=== PATIENT | female | born 1995 | race Caucasian/White ===

== ENCOUNTER → 2016-09-30 | Outpatient (CLI) | payer BC, OTHER ==
[~2016-09-30] MED LIST: ALBUTEROL0.09 MG/A2 INH; AMOXIL500 MG PO; ANAPROX DS550 MG PO; BACTRIM DS 8001 TA1 PO; FLOVENT0.22 MG/AC INH; Flovent 220 M220 MCG INH; IBU-8800 MG PO; LATU20TA PO; LOPRESSOR25 MG PO; MIRTAZAPINE15 M1 PO; NKHM; PREDNISONE20 M1 PO; PREDNISONE20 MG PO; PRILOSEC20 M1 PO; PYRIDIUM200 MG PO; SERTRALINE HYDR50 MG PO; TESSALON PERLE100 M1 PO; TOPROL XL25 MG PO; TRAZODONE50 MG PO; VIBRAMYCIN100 MG PO; VISTARIL25 MG PO; VRAYLAR1.5 MG PO; VRAYLAR6 MG PO; ZOFRAN ODT4 MG SL; ZOFRAN4 MG PO; ZOFRAN8 MG PO
[2016-09-30 12:42] LABS: ALBUMIN 3.8 gm/dl (3.1-4.5); ALKALINE PHOSPHATASE 115 U/L (45-117); BILIRUBIN, TOTAL 0.3 mg/dl (0.2-1.0); BUN 7 mg/dl (7-24); CARBON DIOXIDE 28 mmol/L (21-32); CHLORIDE 105 mmol/L (98-107); EST GLOM FILT AFRICAN AMERICAN > 60 ml/min; GLUCOSE 84 mg/dL (65-99); POTASSIUM 4.2 mmol/L (3.5-5.1); SGOT/AST 29 IU/L (3-35); SGPT/ALT 43 U/L (12-78); SODIUM 139 mmol/L (136-145); TOTAL PROTEIN 7.3 gm/dL (6.4-8.2)
== END | disposition home or self-care (01) ==
LOC: LAB 10:46 → US 11:00
PROVIDERS: Nurse Practitioner
DX: K76.0 Fatty (change of) liver, not elsewhere classified (principal); R10.11 Right upper quadrant pain

== ENCOUNTER 2016-11-06 10:21 | Emergency (ER) | payer BC, OTHER ==
[~2016-11-06] VITALS: Ht 157.4 cm; Wt 76.2 kg
--- NOTE | ~2016-11-06 | EKG ---
[place], [place] ELECTROCARDIOGRAM REPORT NAME: MARTHA BAY UNIT #: [id number] ROOM: DOCTOR: SHANDRA GALLAGHER MD BIRTHDATE: [birth year] DOS: 11/06/2016 TIME: 1124 hours. FINDINGS: 1. Normal sinus rhythm at 66 beats per minute ____ sinus arrhythmia is present. 2. The tracing is normal. 3. No previous tracing is available for comparison. SHANDRA GALLAGHER MD CM:EKGRPT:ELECTROCARDIOGRAM REPORT [id number] SHANDRA GALLAGHER MD
[2016-11-06 10:51] VITALS: BP 132/80
[2016-11-06] MEDS ORDERED: ZOLPIDEM TART10 MG PO (10:54)
[2016-11-06] MEDS ORDERED: DESOGESTREL-ETH1 TAB PO (10:54)
[2016-11-06 11:25] LABS: BASO % 0.2 % (0.0-1.0); EOS # 0.1 10*3/uL (0.0-0.4); EOS % 0.4 % (1.0-4.0); HEMOGLOBIN 14.6 g/dl (12.0-16.0); IG # 0.1 10*3/uL (0.0-0.1); LYMPH # 4.7 10*3/uL (1.3-4.4); LYMPH % 32.3 % (27.0-41.0); MEAN CELL VOLUME 88.7 fl (81.0-99.0); MEAN CORPUSCULAR HGB 30.1 pg (27.0-31.0); MEAN PLATELET VOLUME 10.2 fl (9.6-12.3); MONO # 1.1 10*3/uL (0.1-1.0); MONO % 7.7 % (3.0-9.0); NEUT # 8.7 10*3/uL (2.3-7.9); NEUT % 59.1 % (47.0-73.0); PLATELET COUNT AUTOMATED 305 10*3/uL (130-400); RED BLOOD COUNT 4.85 10*6/uL (4.10-5.10); RED CELL DISTRI WIDTH 12.6 % (0-14.5); WHITE BLOOD COUNT 14.7 10*3/uL (4.8-10.8)
[2016-11-06 11:44] LABS: ALBUMIN 3.5 gm/dl (3.1-4.5); ALKALINE PHOSPHATASE 117 U/L (45-117); BILIRUBIN, TOTAL 0.1 mg/dl (0.2-1.0); BUN 9 mg/dl (7-24); CARBON DIOXIDE 24 mmol/L (21-32); CHLORIDE 109 mmol/L (98-107); EST GLOM FILT AFRICAN AMERICAN > 60 ml/min; GLUCOSE 94 mg/dL (65-99); SGOT/AST 16 IU/L (3-35); SGPT/ALT 22 U/L (12-78); SODIUM 143 mmol/L (136-145)
[2016-11-06 11:45] LABS: BILIRUBIN NEGATIVE (NEGATIVE); BLOOD 3+ (NEGATIVE); CLARITY SL CLOUDY (CLEAR); COLOR YELLOW (YELLOW); GLUCOSE NEGATIVE (NEGATIVE); KETONE NEGATIVE (NEGATIVE); LEUKO ESTERASE TRACE (NEGATIVE); NITRITE NEGATIVE (NEGATIVE); PH 6.5 (5.0-9.0); PROTEIN TRACE (NEGATIVE); UROBILINOGEN 0.2 E.U./dl (0.2-1.0)
[2016-11-06 11:49] LABS: TROPONIN I < 0.015 ng/ml (<0.045)
[2016-11-06 11:58] LABS: BACTERIA 1+; EPITHELIAL CELLS 16-20; RBC 51-100 rbc/hpf (0-2)
[2016-11-06 12:01] LABS: CALCIUM OXALATE CRYSTALS 1+; URINE REFLEX COMMENT YES (NO)
== END 2016-11-06 15:05 | disposition home or self-care (01) ==
LOC: ED 10:21
PROVIDERS: Nurse Practitioner Family
DX: R20.9 Unspecified disturbances of skin sensation (principal); R03.0 Elevated blood-pressure reading, without diagnosis of hypertension; F17.200 Nicotine dependence, unspecified, uncomplicated; F41.9 Anxiety disorder, unspecified; F32.9 Major depressive disorder, single episode, unspecified; E78.5 Hyperlipidemia, unspecified; J44.9 Chronic obstructive pulmonary disease, unspecified; E66.01 Morbid (severe) obesity due to excess calories; Z68.42 Body mass index [BMI] 45.0-49.9, adult; Z88.0 Allergy status to penicillin; Z88.1 Allergy status to other antibiotic agents; Z88.8 Allergy status to other drugs, medicaments and biological substances; Z79.899 Other long term (current) drug therapy

== ENCOUNTER → 2016-11-25 | Outpatient (CLI) | payer BC, OTHER ==
[~2016-11-25] MED LIST changes: +DESOGESTREL-ETH1 TAB PO; +ZOLPIDEM TART10 MG PO
== END | disposition home or self-care (01) ==
LOC: MRI 14:09
DX: G43.009 Migraine without aura, not intractable, without status migrainosus (principal); E34.8 Other specified endocrine disorders

== ENCOUNTER 2017-04-23 20:18 | Emergency (ER) | payer BC, OTHER ==
[~2017-04-23] VITALS: Ht 157.4 cm; Wt 120.2 kg
[2017-04-23 20:27] VITALS: BP 127/82
[2017-04-23] MEDS ORDERED: CYCLOBENZAPRINE10 MG PO (20:37)
[2017-04-23] MEDS ORDERED: NAPROSYN500 MG PO (20:37)
== END 2017-04-23 20:41 | disposition home or self-care (01) ==
LOC: ED 20:18
DX: M54.30 Sciatica, unspecified side (principal); J45.909 Unspecified asthma, uncomplicated; E78.5 Hyperlipidemia, unspecified; Z88.0 Allergy status to penicillin; Z88.2 Allergy status to sulfonamides; F17.200 Nicotine dependence, unspecified, uncomplicated

== ENCOUNTER 2017-05-27 20:03 | Emergency (ER) | payer BC, OTHER ==
[~2017-05-27] VITALS: Ht 154.9 cm; Wt 117.9 kg
[~2017-05-27 20:03] MED LIST changes: +CYCLOBENZAPRINE10 MG PO; +NAPROSYN500 MG PO
[2017-05-27 21:11] LABS: BILIRUBIN NEGATIVE (NEGATIVE); BLOOD NEGATIVE (NEGATIVE); CLARITY CLEAR (CLEAR); COLOR YELLOW (YELLOW); GLUCOSE NEGATIVE (NEGATIVE); KETONE NEGATIVE (NEGATIVE); LEUKO ESTERASE NEGATIVE (NEGATIVE); NITRITE NEGATIVE (NEGATIVE); UROBILINOGEN 0.2 E.U./dl (0.2-1.0)
[2017-05-27 21:20] LABS: BACTERIA 3+; RBC 0-2 rbc/hpf (0-2)
[2017-05-27] MEDS ORDERED: Zofran4 MG SL (21:57)
[2017-05-27 22:03] VITALS: BP 115/83
== END 2017-05-27 22:09 | disposition home or self-care (01) ==
LOC: ED 20:03
PROVIDERS: Student in an Organized Health Care Education/Training Program
DX: R11.2 Nausea with vomiting, unspecified (principal); J45.909 Unspecified asthma, uncomplicated; F41.9 Anxiety disorder, unspecified; F32.9 Major depressive disorder, single episode, unspecified; E78.5 Hyperlipidemia, unspecified; Z68.42 Body mass index [BMI] 45.0-49.9, adult; F17.200 Nicotine dependence, unspecified, uncomplicated; F10.10 Alcohol abuse, uncomplicated; Z88.8 Allergy status to other drugs, medicaments and biological substances; Z88.0 Allergy status to penicillin; Z88.2 Allergy status to sulfonamides; Z79.899 Other long term (current) drug therapy

== ENCOUNTER → 2017-07-29 | Outpatient (CLI) | payer BC, OTHER ==
[~2017-07-29] MED LIST changes: +Zofran4 MG SL
== END | disposition home or self-care (01) ==
LOC: RAD 15:47
DX: J45.21 Mild intermittent asthma with (acute) exacerbation (principal)

== ENCOUNTER → 2018-03-31 | Outpatient (CLI) | payer BC, OTHER | END | disposition home or self-care (01) | LOC: RAD 13:17 | DX: M25.462 Effusion, left knee (principal) ==

== ENCOUNTER → 2018-05-12 | Outpatient (CLI) | payer BC, OTHER | END | disposition home or self-care (01) | LOC: RAD 13:06 | DX: R05 Cough (principal); R06.02 Shortness of breath; J45.909 Unspecified asthma, uncomplicated ==

== ENCOUNTER → 2018-11-25 | Outpatient (CLI) | payer BC, OTHER ==
[~2018-11-25] MED LIST changes: +ERYTHROMYCIN500 M1 PO; +ZITHROMAX250 MG PO
== END | disposition home or self-care (01) ==
LOC: US 15:58
DX: Z34.82 Encounter for supervision of other normal pregnancy, second trimester (principal); Z3A.20 20 weeks gestation of pregnancy

== ENCOUNTER → 2018-12-15 | Outpatient (CLI) | payer OTHER | END | disposition home or self-care (01) | LOC: US 16:48 | DX: Z34.82 Encounter for supervision of other normal pregnancy, second trimester (principal); Z3A.22 22 weeks gestation of pregnancy ==

== ENCOUNTER → 2019-01-30 | Outpatient (CLI) | payer OTHER | END | disposition home or self-care (01) | LOC: LAB 10:02 | DX: R73.09 Other abnormal glucose (principal) ==

== ENCOUNTER → 2019-02-14 | Outpatient (CLI) | payer OTHER | END | disposition home or self-care (01) | LOC: US 10:57 | DX: Z34.93 Encounter for supervision of normal pregnancy, unspecified, third trimester (principal); Z3A.31 31 weeks gestation of pregnancy ==

== ENCOUNTER → 2019-03-21 | Outpatient (CLI) | payer OTHER | END | disposition home or self-care (01) | LOC: US 11:22 | DX: Z34.03 Encounter for supervision of normal first pregnancy, third trimester (principal); Z3A.36 36 weeks gestation of pregnancy ==

== ENCOUNTER 2020-12-03 19:00 | Emergency (ER) | payer OTHER ==
[~2020-12-03] VITALS: Ht 154.9 cm; Wt 97.1 kg
== END 2020-12-03 20:35 | disposition home or self-care (01) ==
LOC: ED 19:00
DX: S50.01XA Contusion of right elbow, initial encounter (principal); Z79.899 Other long term (current) drug therapy; Z88.1 Allergy status to other antibiotic agents; Z88.0 Allergy status to penicillin; Z88.8 Allergy status to other drugs, medicaments and biological substances; W22.03XA Walked into furniture, initial encounter; Y93.89 Activity, other specified; Y92.89 Other specified places as the place of occurrence of the external cause; Y99.9 Unspecified external cause status

== ENCOUNTER → 2020-12-20 | Outpatient (CLI) | payer OTHER | END | disposition home or self-care (01) | LOC: US 10:00 | PROVIDERS: ATTEND Nurse Practitioner Women's Health | DX: T83.32XA Displacement of intrauterine contraceptive device, initial encounter (principal) ==

== ENCOUNTER 2021-02-28 07:05 | Emergency (ER) | payer OTHER ==
[2021-02-28 07:22] VITALS: BP 108/74
[2021-02-28 08:02] LABS: BASO # 0.1 10*3/uL (0.0-0.1); BASO % 0.7 % (0.0-1.0); EOS # 0.3 10*3/uL (0.0-0.4); EOS % 4.2 % (1.0-4.0); HEMATOCRIT 42.9 % (37.0-47.0); LYMPH # 2.9 10*3/uL (1.3-4.4); LYMPH % 41.9 % (27.0-41.0); MEAN CELL VOLUME 88.8 fl (81.0-99.0); MEAN CORPUSCULAR HGB 30.4 pg (27.0-31.0); MEAN CORPUSCULAR HGB CONC 34.3 g/dl (33.0-37.0); MONO # 0.6 10*3/uL (0.1-1.0); MONO % 8.9 % (3.0-9.0); NEUT # 3.1 10*3/uL (2.3-7.9); PLATELET COUNT AUTOMATED 233 10*3/uL (130-400); RED BLOOD COUNT 4.83 10*6/uL (4.10-5.10); RED CELL DISTRI WIDTH 12.1 % (0-14.5)
[2021-02-28 08:16] LABS: ALBUMIN 3.6 gm/dl (3.1-4.5); ALKALINE PHOSPHATASE 78 U/L (45-117); BUN 7 mg/dl (7-24); CHLORIDE 109 mmol/L (98-107); CREATININE 0.69 mg/dL (0.55-1.02); SGOT/AST 13 IU/L (3-35); SGPT/ALT 26 U/L (12-78); SODIUM 139 mmol/L (136-145)
[2021-02-28 08:19] LABS: B-hCG (QUALITATIVE) NEGATIVE (NEGATIVE)
[2021-02-28] MEDS ORDERED: ZOFRAN4 MG PO (08:31)
== END 2021-02-28 07:48 | disposition home or self-care (01) ==
LOC: ED 07:05
PROVIDERS: Emergency Medicine
DX: R05 Cough (principal); Z20.822 Contact with and (suspected) exposure to COVID-19; R11.10 Vomiting, unspecified; R06.02 Shortness of breath; E78.5 Hyperlipidemia, unspecified; Z88.1 Allergy status to other antibiotic agents; Z88.0 Allergy status to penicillin; Z88.8 Allergy status to other drugs, medicaments and biological substances; Z79.899 Other long term (current) drug therapy

== ENCOUNTER 2021-04-16 07:38 | Emergency (ER) | payer OTHER ==
[~2021-04-16] VITALS: Ht 154.9 cm; Wt 110.2 kg
[2021-04-16 07:44] VITALS: BP 141/86
[2021-04-16] MEDS ORDERED: SPIRIVA RESPIMAT4 G1 INH (07:46)
[2021-04-16] MEDS ORDERED: Motrin,Rufen800 MG PO (10:52)
== END 2021-04-16 10:58 | disposition home or self-care (01) ==
LOC: ED 07:38
DX: S16.1XXA Strain of muscle, fascia and tendon at neck level, initial encounter (principal); Z88.0 Allergy status to penicillin; Z88.2 Allergy status to sulfonamides; Z88.8 Allergy status to other drugs, medicaments and biological substances; Z79.899 Other long term (current) drug therapy; V89.2XXA Person injured in unspecified motor-vehicle accident, traffic, initial encounter; Y93.89 Activity, other specified; Y92.89 Other specified places as the place of occurrence of the external cause; Y99.8 Other external cause status

== ENCOUNTER 2021-05-27 11:29 | Emergency (ER) | payer OTHER ==
[~2021-05-27] VITALS: Wt 103.0 kg
[~2021-05-27 11:29] MED LIST changes: +Motrin,Rufen800 MG PO; +SPIRIVA RESPIMAT4 G1 INH
[2021-05-27 11:39] VITALS: BP 117/74
[2021-05-27] MEDS ORDERED: FLONASE ALLERG9.9 ML NAS (13:55)
[2021-05-27] MEDS ORDERED: VIBRAMYCIN100 MG PO (13:55)
== END 2021-05-27 14:08 | disposition home or self-care (01) ==
LOC: ED 11:29
DX: J32.9 Chronic sinusitis, unspecified (principal); Z20.822 Contact with and (suspected) exposure to COVID-19; F17.200 Nicotine dependence, unspecified, uncomplicated; Z88.0 Allergy status to penicillin; Z88.1 Allergy status to other antibiotic agents; Z88.8 Allergy status to other drugs, medicaments and biological substances; Z79.899 Other long term (current) drug therapy

== ENCOUNTER 2021-06-03 17:16 | Emergency (ER) | payer OTHER ==
[~2021-06-03] VITALS: Ht 154.9 cm; Wt 101.6 kg
[~2021-06-03 17:16] MED LIST changes: +FLONASE ALLERG9.9 ML NAS
[2021-06-03 17:24] VITALS: BP 132/90
[2021-06-03] MEDS ORDERED: ZIPRASIDONE HCL20 M1 PO (17:25)
== END 2021-06-03 20:24 | disposition home or self-care (01) ==
LOC: ED 17:16
DX: G43.909 Migraine, unspecified, not intractable, without status migrainosus (principal); F17.200 Nicotine dependence, unspecified, uncomplicated; Z88.0 Allergy status to penicillin; Z88.2 Allergy status to sulfonamides; Z88.8 Allergy status to other drugs, medicaments and biological substances; Z79.899 Other long term (current) drug therapy

== ENCOUNTER 2021-07-24 09:14 | Emergency (ER) | payer OTHER ==
[~2021-07-24 09:14] MED LIST changes: +ZIPRASIDONE HCL20 M1 PO
[2021-07-24 09:20] VITALS: BP 122/85
[2021-07-24] MEDS ORDERED: CLEOCIN HCL150 MG PO (10:07)
== END 2021-07-24 10:15 | disposition home or self-care (01) ==
LOC: ED 09:14
DX: K08.89 Other specified disorders of teeth and supporting structures (principal); F17.200 Nicotine dependence, unspecified, uncomplicated; Z88.1 Allergy status to other antibiotic agents; Z88.8 Allergy status to other drugs, medicaments and biological substances; Z88.2 Allergy status to sulfonamides; Z79.899 Other long term (current) drug therapy; Z98.890 Other specified postprocedural states

== ENCOUNTER 2021-09-16 04:55 | Emergency (ER) | payer OTHER ==
[~2021-09-16] VITALS: Ht 157.4 cm; Wt 102.5 kg
[~2021-09-16 04:55] MED LIST changes: +CLEOCIN HCL150 MG PO
[2021-09-16 05:13] VITALS: BP 127/76
[2021-09-16] MEDS ORDERED: CLINDAMYCIN HC300 MG PO (05:20)
== END 2021-09-16 05:35 | disposition home or self-care (01) ==
LOC: ED 04:55
DX: K02.9 Dental caries, unspecified (principal); G43.909 Migraine, unspecified, not intractable, without status migrainosus; Z88.0 Allergy status to penicillin; Z88.1 Allergy status to other antibiotic agents; Z88.8 Allergy status to other drugs, medicaments and biological substances; Z79.899 Other long term (current) drug therapy; Z98.890 Other specified postprocedural states

== ENCOUNTER 2021-09-23 08:28 | Emergency (ER) | payer OTHER ==
[~2021-09-23] VITALS: Ht 157.4 cm; Wt 102.5 kg
[~2021-09-23 08:28] MED LIST changes: +CLINDAMYCIN HC300 MG PO
[2021-09-23 08:32] VITALS: BP 126/79
== END 2021-09-23 11:11 | disposition home or self-care (01) ==
LOC: ED 08:28
DX: G43.909 Migraine, unspecified, not intractable, without status migrainosus (principal); R11.2 Nausea with vomiting, unspecified; Z88.1 Allergy status to other antibiotic agents; Z88.0 Allergy status to penicillin; Z88.2 Allergy status to sulfonamides; Z88.8 Allergy status to other drugs, medicaments and biological substances; Z79.2 Long term (current) use of antibiotics; Z79.899 Other long term (current) drug therapy; Z98.890 Other specified postprocedural states

== ENCOUNTER 2021-09-25 14:00 | Emergency (ER) | payer OTHER ==
[~2021-09-25] VITALS: Wt 102.5 kg
[2021-09-25 14:30] VITALS: BP 130/90
[2021-09-25 15:13] LABS: BASO # 0.1 10*3/uL (0.0-0.1); BASO % 0.6 % (0.0-1.0); EOS # 0.2 10*3/uL (0.0-0.4); EOS % 1.6 % (1.0-4.0); HEMATOCRIT 44.7 % (37.0-47.0); LYMPH # 3.5 10*3/uL (1.3-4.4); MEAN CELL VOLUME 87.8 fl (81.0-99.0); MEAN CORPUSCULAR HGB 30.5 pg (27.0-31.0); MEAN CORPUSCULAR HGB CONC 34.7 g/dl (33.0-37.0); MEAN PLATELET VOLUME 10.3 fl (9.6-12.3); MONO # 0.9 10*3/uL (0.1-1.0); MONO % 9.1 % (3.0-9.0); NEUT # 5.3 10*3/uL (2.3-7.9); NEUT % 53.3 % (47.0-73.0); PLATELET COUNT AUTOMATED 214 10*3/uL (130-400); RED BLOOD COUNT 5.09 10*6/uL (4.10-5.10); RED CELL DISTRI WIDTH 11.9 % (0-14.5)
[2021-09-25 15:29] LABS: ALKALINE PHOSPHATASE 91 U/L (45-117); BUN 10 mg/dl (7-24); CHLORIDE 107 mmol/L (98-107); CREATININE 0.77 mg/dL (0.55-1.02); POTASSIUM 3.8 mmol/L (3.5-5.1); SGOT/AST 13 IU/L (3-35); SGPT/ALT 23 U/L (12-78); SODIUM 142 mmol/L (136-145)
[2021-09-25 15:56] LABS: BILIRUBIN Negative (Negative); BLOOD Negative (Negative); CLARITY Clear (Clear); COLOR Yellow (Yellow); GLUCOSE Negative (Negative); KETONE Negative (Negative); LEUKO ESTERASE 1+ (Negative); NITRITE Negative (Negative); PH 6.5 (4.5-8.0); SPECIFIC GRAVITY <= 1.005 (1.001-1.030); UROBILINOGEN 0.2 E.U./dl (0.0-1.0)
[2021-09-25] MEDS ORDERED: HYDROCODONE-AC1 EAC1 PO (16:07)
[2021-09-25 16:12] LABS: BACTERIA 2+
== END 2021-09-25 17:01 | disposition home or self-care (01) ==
LOC: ED 14:00
PROVIDERS: Internal Medicine
DX: G43.909 Migraine, unspecified, not intractable, without status migrainosus (principal); Z88.0 Allergy status to penicillin; Z88.8 Allergy status to other drugs, medicaments and biological substances; Z88.2 Allergy status to sulfonamides; Z79.899 Other long term (current) drug therapy

== ENCOUNTER 2021-12-22 16:41 | Emergency (ER) | payer OTHER ==
[~2021-12-22] VITALS: Ht 157.4 cm; Wt 104.3 kg
[~2021-12-22 16:41] MED LIST changes: +HYDROCODONE-AC1 EAC1 PO
[2021-12-22 16:47] VITALS: BP 121/72
== END 2021-12-22 18:50 | disposition home or self-care (01) ==
LOC: ED 16:41
DX: G43.909 Migraine, unspecified, not intractable, without status migrainosus (principal); Z98.890 Other specified postprocedural states; Z79.899 Other long term (current) drug therapy; Z88.1 Allergy status to other antibiotic agents; Z88.0 Allergy status to penicillin

== ENCOUNTER 2022-04-30 18:18 | Emergency (ER) | payer OTHER ==
[~2022-04-30] VITALS: Ht 157.4 cm; Wt 113.4 kg
[2022-04-30 19:15] VITALS: BP 134/93
== END 2022-04-30 20:40 | disposition home or self-care (01) ==
LOC: ED 18:18
DX: S09.90XA Unspecified injury of head, initial encounter (principal); R55 Syncope and collapse; Z98.890 Other specified postprocedural states; Z79.899 Other long term (current) drug therapy; Z88.0 Allergy status to penicillin; Z88.1 Allergy status to other antibiotic agents; Z88.8 Allergy status to other drugs, medicaments and biological substances; W22.01XA Walked into wall, initial encounter; Y93.89 Activity, other specified; Y92.89 Other specified places as the place of occurrence of the external cause; Y99.8 Other external cause status

== ENCOUNTER 2022-05-06 18:38 | Emergency (ER) | payer OTHER ==
[2022-05-06 19:00] VITALS: BP 127/86
== END 2022-05-06 20:08 | disposition home or self-care (01) ==
LOC: ED 18:38
DX: F41.0 Panic disorder [episodic paroxysmal anxiety] (principal); F17.200 Nicotine dependence, unspecified, uncomplicated; Z88.1 Allergy status to other antibiotic agents; Z88.0 Allergy status to penicillin; Z88.2 Allergy status to sulfonamides; Z88.8 Allergy status to other drugs, medicaments and biological substances; Z79.2 Long term (current) use of antibiotics; Z79.899 Other long term (current) drug therapy; Z98.890 Other specified postprocedural states

== ENCOUNTER 2022-05-27 18:21 | Emergency (ER) | payer OTHER ==
[~2022-05-27] VITALS: Wt 113.4 kg
[2022-05-27 18:58] VITALS: BP 124/73
[2022-05-27] MEDS ORDERED: VIBRAMYCIN100 MG PO (22:59)
[2022-05-27] MEDS ORDERED: IBUPROFEN600 MG PO (22:59)
== END 2022-05-27 23:36 | disposition home or self-care (01) ==
LOC: ED 18:21
DX: S71.132A Puncture wound without foreign body, left thigh, initial encounter (principal); Z88.0 Allergy status to penicillin; Z88.1 Allergy status to other antibiotic agents; Z88.8 Allergy status to other drugs, medicaments and biological substances; Z79.899 Other long term (current) drug therapy; Z98.890 Other specified postprocedural states; W45.0XXA Nail entering through skin, initial encounter; Y93.89 Activity, other specified; Y92.89 Other specified places as the place of occurrence of the external cause; Y99.8 Other external cause status

== ENCOUNTER → 2022-06-11 | Outpatient (CLI) | payer OTHER ==
[~2022-06-11] MED LIST changes: +IBUPROFEN600 MG PO
== END | disposition home or self-care (01) ==
LOC: CT 11:37
PROVIDERS: ATTEND Internal Medicine
DX: R51.9 Headache, unspecified (principal)

== ENCOUNTER → 2022-06-24 | Outpatient (CLI) | payer OTHER | END | disposition home or self-care (01) | LOC: MRI 01:29 | PROVIDERS: ATTEND Physician Assistant Medical | DX: H93.A9 Pulsatile tinnitus, unspecified ear (principal); G89.29 Other chronic pain; J34.1 Cyst and mucocele of nose and nasal sinus ==

== ENCOUNTER 2022-07-08 08:41 | Emergency (ER) | payer OTHER ==
[~2022-07-08] VITALS: Ht 154.9 cm; Wt 112.5 kg
[2022-07-08 08:47] VITALS: BP 132/91
[2022-07-08] MEDS ORDERED: Ondansetron4 MG PO (09:10)
== END 2022-07-08 10:25 | disposition home or self-care (01) ==
LOC: ED 08:41
DX: R11.2 Nausea with vomiting, unspecified (principal); Z88.0 Allergy status to penicillin; Z88.2 Allergy status to sulfonamides; Z88.8 Allergy status to other drugs, medicaments and biological substances; Z88.5 Allergy status to narcotic agent; Z98.890 Other specified postprocedural states; Z90.89 Acquired absence of other organs; F10.90 Alcohol use, unspecified, uncomplicated

== ENCOUNTER 2022-07-13 17:57 | Emergency (ER) | payer OTHER ==
[~2022-07-13] VITALS: Ht 154.9 cm; Wt 103.4 kg
[~2022-07-13 17:57] MED LIST changes: +Ondansetron4 MG PO
[2022-07-13 18:17] VITALS: BP 124/84
[2022-07-13] MEDS ORDERED: OLANZAPINE5 MG PO (18:19)
[2022-07-13] MEDS ORDERED: COMPAZINE5 M3 PO (18:19)
[2022-07-13] MEDS ORDERED: ZANAFLEX2 M2 PO (18:20)
[2022-07-13] MEDS ORDERED: Motrin,Rufen800 MG PO (18:20)
[2022-07-13] MEDS ORDERED: NURTEC ODT75 MG PO (18:20)
[2022-07-13] MEDS ORDERED: Ondansetron4 MG PO (18:21)
[2022-07-13] MEDS ORDERED: PREDNISONE50 MG PO (20:13)
== END 2022-07-13 20:25 | disposition home or self-care (01) ==
LOC: ED 17:57
DX: G43.909 Migraine, unspecified, not intractable, without status migrainosus (principal); Z88.5 Allergy status to narcotic agent; Z88.0 Allergy status to penicillin; Z88.2 Allergy status to sulfonamides; Z98.890 Other specified postprocedural states; F10.90 Alcohol use, unspecified, uncomplicated; Z88.1 Allergy status to other antibiotic agents

== ENCOUNTER 2025-01-31 12:02 | Emergency (ER) | payer OTHER, BC ==
[~2025-01-31] VITALS: Ht 154.9 cm; Wt 92.5 kg
[~2025-01-31 12:02] MED LIST changes: +COMPAZINE5 M3 PO; +NURTEC ODT75 MG PO; +OLANZAPINE5 MG PO; +PREDNISONE50 MG PO; +ZANAFLEX2 M2 PO
[2025-01-31 12:22] VITALS: BP 122/80
[2025-01-31] MEDS ORDERED: NAPROXEN 250 MG TAB PO ONE (12:35)
[2025-01-31] MEDS ORDERED: Ondansetron Hydrochloride 4 MG TAB PO ONE (12:35)
[2025-01-31] MEDS ORDERED: METHOCARBAMOL 750 MG TAB PO ONE (12:35)
[2025-01-31] MEDS ORDERED: NAPROSYN500 MG PO (14:20)
[2025-01-31] MEDS ORDERED: METHOCARBAMOL750 M1 PO (14:20)
== END 2025-01-31 14:24 | disposition home or self-care (01) ==
LOC: ED 12:02
DX: S13.4XXA Sprain of ligaments of cervical spine, initial encounter (principal); S43.401A Unspecified sprain of right shoulder joint, initial encounter; S20.211A Contusion of right front wall of thorax, initial encounter; R51.9 Headache, unspecified; R42 Dizziness and giddiness; Z88.1 Allergy status to other antibiotic agents; Z88.0 Allergy status to penicillin; Z88.2 Allergy status to sulfonamides; Z79.899 Other long term (current) drug therapy; Z98.890 Other specified postprocedural states; V49.49XA Driver injured in collision with other motor vehicles in traffic accident, initial encounter; Y93.I9 Activity, other involving external motion; Y92.488 Other paved roadways as the place of occurrence of the external cause; Y99.8 Other external cause status